=== PATIENT | female | born 1940 | race Caucasian/White ===

== ENCOUNTER → 2016-09-13 | Outpatient (REF) | payer MEDICARE, OTHER ==
[2016-09-13 18:39] LABS: CALCIUM OXALATE CRYSTALS LARGE
== END ==
LOC: M SMT 17:12
PROVIDERS: ATTEND Nurse Practitioner Women's Health
DX: N39.41 Urge incontinence (principal)
CPT/HCPCS: 81001; 87086; 88108; G0463

== ENCOUNTER → 2019-06-18 | Outpatient (REF) | LOC: M LAB LCGH 14:42 | PROVIDERS: ATTEND Nurse Practitioner Family | DX: L85.8 Other specified epidermal thickening (principal) ==